=== PATIENT | male | born 2000 | race African-American/Black ===

== ENCOUNTER 2019-08-18 18:55 | Emergency (ER) | payer OTHER ==
[2019-08-18 19:02] VITALS: BP 150/86; PULSE 63; TEMP 97.9; BMI 25.7
[2019-08-18] MEDS ORDERED: AZITHROMYCIN 500 MG TABLET PO ONE (19:59)
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
[2019-08-18] MEDS ORDERED: AZITHROMYCIN 250 MG TABLET ONE (20:12)
[2019-08-18] MEDS ORDERED: LIDOCAINE HCL 2% (20ML MULTI-DOSE VIAL) NR ONE (20:13)
== END 2019-08-18 22:28 | disposition home or self-care (01) ==
LOC: FER 18:55
DX: Z11.3 Encounter for screening for infections with a predominantly sexual mode of transmission (principal)
CPT/HCPCS: 36415; 86593; 87389; 87491; 87591; 96372; 99282-25